=== PATIENT | female | born 1960 | race Two or more races ===

== ENCOUNTER 2022-10-21 05:54 | Day surgery (SDC) | payer OTHER ==
[~2022-10-21 05:54] MED LIST: ACID REDUCER20 M1 PO; ATIVAN2 M1 PO; LOSAR PO; LYRICA100 MG PO; PANTO PO; TIZANIDINE HCL4 MG PO
[2022-10-21] MEDS ORDERED: CEPHALEXIN250 MG PO (10:53)
[2022-10-21] MEDS ORDERED: TRAM1TAB98 PO (10:53)
== END 2022-10-21 12:10 | disposition home or self-care (01) ==
LOC: CIR.AMB 05:54
PROVIDERS: ATTEND Obstetrics & Gynecology Gynecology
DX: N32.81 Overactive bladder (principal); N39.41 Urge incontinence; R35.0 Frequency of micturition; Z20.822 Contact with and (suspected) exposure to COVID-19; Z88.6 Allergy status to analgesic agent
CPT/HCPCS: 64590; 95972; L8679